=== PATIENT | female | born 1985 | race African-American/Black ===

== ENCOUNTER → 2019-07-30 | Outpatient (CLI) | payer OTHER ==
--- NOTE | 2019-07-30 12:32 | KCIC ---
PREG MORE THAN OR EQ TO 14 WKS History: Positive test, size and dates Comparison: None. Findings: Multiple sonographic images of the uterus are submitted. There is a single intrauterine fetus in breech presentation. There is demonstrable cardiac activity 152 bpm. Subjectively amniotic fluid volume is within normal limits. JUN is 14.9 cm. bladder, stomach, four-chamber view of heart, and 2 kidneys were demonstrated. Cervix measured about 3.3 cm. No obvious abnormality is demonstrated of the visualized spine. Male genitalia were demonstrated. There is anterior placenta. There is midline cord insertion and apparently three-vessel cord. Maternal adnexal regions are not demonstrated. Biometry data are as follows: Biparietal diameter 6.3 cm corresponds 25 weeks 4 days Head circumference 24.26 cm corresponds 26 weeks 2 days Abdominal circumference 21.64 cm corresponds with 26 weeks 1 day Femur length 4.72 cm corresponds with 25 weeks 5 days Adjusted ultrasound age 26 weeks 0 days with estimated delivery date of 11/05/2019 LMP dating not provided Estimated weight 876 g +/- 130 g Impression: 1. There is a single intrauterine in breech presentation. Adjusted ultrasound age is 26 weeks 0 days with estimated delivery date of 11/05/2019. Electronically signed by: Alton Rowland MD (07/30/2019 12:29 PM) [facility] [email or web address]
== END | disposition home or self-care (01) ==
LOC: KCIC US 07:55
PROVIDERS: ATTEND Obstetrics & Gynecology
DX: O32.1XX0 Maternal care for breech presentation, not applicable or unspecified (principal); O26.842 Uterine size-date discrepancy, second trimester; Z3A.26 26 weeks gestation of pregnancy
CPT/HCPCS: 76805